=== PATIENT | male | born 1985 | race Caucasian/White ===

== ENCOUNTER 2018-10-01 18:47 | Emergency (ER) | payer OTHER ==
[2018-10-01 19:05] VITALS: BP 127/84; PULSE 73; RESP 18; TEMP 98.4
[2018-10-01] MEDS ORDERED: HYDROcodone/APAP 7.5-325MG 1 EACH TAB PO ONE (19:22)
--- NOTE | 2018-10-01 19:41 | ED ---
Extremity Problem HPI - General Chief complaint: Extremity Problem,Nontraumatic Stated complaint: R Leg Pain, Numbness Time Seen by Provider: 10/01/18 19:02 Source: patient Mode of arrival: EMS Limitations: no limitations - History of Present Illness Initial comments: 33-year-old male patient who recently underwent external fixation of a right ankle injury on 09/25/2018. Patient states that he is out of his pain medication as been having increasing pain to the right leg. Patient states he is also having a numbness tingling sensation in the right lateral thigh that is worsened since yesterday. States his leg is swollen. States his surgeon is concern for blood clot. States he is taking an aspirin daily. Denies any numbness or tingling to the foot. Denies any new injury to the leg. Denies any chest pain, shortness of breath, or palpitations. Denies any history of DVT. Patient denies any recent rash, fever, chills, abdominal pain, nausea, vomiting, diarrhea, constipation, back pain, numbness, tingling, dizziness, weakness, hematuria, dysuria, urinary urgency, urinary frequency, headache, visual changes, or any other complaints. - Related Data Home Medications Medication Instructions Recorded Confirmed Aspirin EC [Ecotrin Low Dose] 81 mg PO DAILY 10/01/18 10/01/18 Docusate [Colace] 100 mg PO DAILY 10/01/18 10/01/18 HYDROcodone/APAP 5-325MG [[place] 1 tab PO Q6HR PRN 10/01/18 10/01/18 5-325] Omeprazole 40 mg PO DAILY 10/01/18 10/01/18 Allergies Allergy/AdvReac Type Severity Reaction Status Date / Time No Known Allergies Allergy Unverified 10/01/18 19:21 Review of Systems ROS Statement: Those systems with pertinent positive or pertinent negative responses have been documented in the HPI. ROS Other: All systems not noted in ROS Statement are negative. Past Medical History Additional Past Medical History / Comment(s): suicide attempts in past History of Any Multi-Drug Resistant Organisms: None Reported Past Surgical History: Orthopedic Surgery Additional Past Surgical History / Comment(s): r ankle surg Past Psychological History: Anxiety, Bipolar, Depression Smoking Status: Current every day smoker Past Alcohol Use History: Abuse, Daily Past Drug Use History: Marijuana General Exam Limitations: no limitations General appearance: alert, in no apparent distress, other (Physical well- developed, well-nourished adult male patient in no acute distress. Vital signs upon presentation are temperature 98.4F, pulse 73, respirations 18, blood pressure 127/84, pulse ox 99% on room air.) Eye exam: Present: normal appearance, PERRL, EOMI. Absent: scleral icterus, conjunctival injection, periorbital swelling ENT exam: Present: normal exam, normal oropharynx, mucous membranes moist Respiratory exam: Present: normal lung sounds bilaterally. Absent: respiratory distress, wheezes, rales, rhonchi, stridor Cardiovascular Exam: Present: regular rate, normal rhythm, normal heart sounds. Absent: systolic murmur, diastolic murmur, rubs, gallop, clicks Extremities exam: Present: full ROM, normal capillary refill, other (Patient has external fixation device to the right lower leg and ankle. Patient insertion sites appear to be intact with no evidence of infection. There is mild swelling of the right leg, nonpitting. Skin is pink, warm, dry. Cap refills less than 3 seconds. Pedal pulses 2+.). Absent: normal inspection, tenderness, pedal edema, joint swelling, calf tenderness Neurological exam: Present: alert, oriented X3, CN II-XII intact Psychiatric exam: Present: normal affect, normal mood Skin exam: Present: warm, dry, intact, normal color. Absent: rash Course Vital Signs 10/01/18 18:58 Temperature 98.4 F Pulse Rate 73 Respiratory 18 Rate Blood Pressure 127/84 O2 Sat by Pulse 99 Oximetry Medical Decision Making - Medical Decision Making 33-year-old male patient presents to the emergency department today for evaluation of pain, swelling, and paresthesia to the right lower extremity. Patient is status post external fixation and repair of right ankle fracture on 09/25/2018. Patient's physicians abdomen to rule out DVT. Ultrasound was obtained and showed no evidence for acute DVT. Patient is neurovascular status was intact. Pulses were strong and intact. This all patient's pain is more related to being out of his narcotic pain medication as he did take more than directed over the last several days. He is instructed to follow-up with his surgeon for further evaluation any further prescription refills. Return parameters were discussed in detail. He verbalizes understanding and agrees with this plan. - Radiology Data Radiology results: report reviewed, image reviewed Venous Doppler duplex of the right lower extremity was obtained. Report was reviewed in its entirety. Impression by Dr. Pérez shows no ultrasound evidence for acute DVT in the right lower extremity. Disposition Clinical Impression: Postoperative pain, Right leg paresthesias Disposition: HOME SELF-CARE Condition: Good Instructions (If sedation given, give patient instructions): Paresthesia (ED), Leg Pain (ED) Additional Instructions: Follow-up with your surgeon for further evaluation and any refills on prescriptions. Return to the emergency department for any new, worsening, or concerning symptoms. Is patient prescribed a controlled substance at d/c from ED?: No Referrals: None,Stated [Primary Care Provider] - 1-2 days Time of Disposition: 20:46
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
== END 2018-10-01 21:10 | disposition home or self-care (01) ==
LOC: EC 18:47
DX: G89.18 Other acute postprocedural pain (principal); M79.604 Pain in right leg; R20.2 Paresthesia of skin; M79.89 Other specified soft tissue disorders; R20.0 Anesthesia of skin; F17.200 Nicotine dependence, unspecified, uncomplicated; Z79.82 Long term (current) use of aspirin; Z79.899 Other long term (current) drug therapy; Z87.81 Personal history of (healed) traumatic fracture; Z96.698 Presence of other orthopedic joint implants
CPT/HCPCS: 99284

== ENCOUNTER 2018-10-06 09:29 | Emergency (ER) | payer OTHER ==
[2018-10-06 09:36] VITALS: RESP 18
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
--- NOTE | 2018-10-06 10:30 | XR ---
EXAMINATION TYPE: XR tibia fibula RT DATE OF EXAM: 10/06/2018 CLINICAL HISTORY: pain TECHNIQUE: AP and lateral images of the right tibia and fibula are obtained. COMPARISON: None. FINDINGS: Comminuted distal tibial fracture. Comminuted ulnar fracture noted as well. Traction device in place. The joint spaces appear within normal limits. Soft tissue edema noted. The graft IMPRESSI ON: Distal tibial and fibular fractures with traction device in place.
[2018-10-06] MEDS ORDERED: MORPHINE SULFATE 4 MG/ML SYRINGE IM STA (10:40)
[2018-10-06] MEDS ORDERED: KETOROLAC 60 MG/2 ML VIAL IM STA (10:44)
[2018-10-06 11:14] VITALS: BP 135/72; PULSE 99; TEMP 98.5
== END 2018-10-06 11:13 | disposition home or self-care (01) ==
LOC: EC 09:29
DX: S82.891A Other fracture of right lower leg, initial encounter for closed fracture (principal); G89.18 Other acute postprocedural pain; F17.200 Nicotine dependence, unspecified, uncomplicated; Z53.8 Procedure and treatment not carried out for other reasons; Z98.890 Other specified postprocedural states; Z79.82 Long term (current) use of aspirin; Z79.899 Other long term (current) drug therapy; W19.XXXA Unspecified fall, initial encounter
CPT/HCPCS: 73590; 99283; 96372; J1885

== ENCOUNTER 2018-10-07 02:00 | Emergency (ER) | payer OTHER ==
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
[2018-10-07] MEDS ORDERED: SODIUM CHLORIDE 0.9% 1,000 ML IV ONE (02:43)
[2018-10-07] MEDS ORDERED: HYDROcodone/APAP 7.5-325MG 1 EACH TAB PO ONE (02:43)
[2018-10-07] MEDS ORDERED: IBUPROFEN 600 MG TAB PO STA (04:36)
[2018-10-07] MEDS: SODIUM CHLORIDE 0.9% 500 ML 500 ML IV SCH ×2 (05:04→07:23)
--- NOTE | 2018-10-07 05:12 | XR ---
EXAM: XR Right Tibia and Fibula, 2 Views CLINICAL HISTORY: ITS.REASON XR Reason: Pain TECHNIQUE: Frontal and lateral views of the right tibia and fibula. COMPARISON: Right tibia fibula radiographs 10/06/2018. FINDINGS: Bones/joints: Comminuted intra-articular distal tibia and fibula fractures are seen status post external fixation of the right lower leg. No significant interval change in alignment of fractures. Soft tissues: Soft tissue swelling of the ankle.. No radiopaque foreign body. IMPRESSION: Comminuted intra-articular distal tibia and fibula fractures are seen status post external fixation of the right lower leg. No new fracture is seen.
[2018-10-07 05:13] LABS: Basophils # (A) 0.1 k/uL (0-0.2); Basophils % (A) 0 %; Eosinophils # (A) 0.3 k/uL (0-0.7); Eosinophils % (A) 2 %; HCT 34.2 % (39.0-53.0); HGB 11.9 gm/dL (13.0-17.5); Lymphocytes # (A) 1.1 k/uL (1.0-4.8); Lymphocytes % (A) 8 %; MCH 31.1 pg (25.0-35.0); MCHC 34.6 g/dL (31.0-37.0); MCV 89.7 fL (80.0-100.0); Mean Platelet Volume 6.3; Monocytes # (A) 0.9 k/uL (0-1.0); Monocytes % (A) 7 %; Neutrophils # (A) 10.8 k/uL (1.3-7.7); Neutrophils % (A) 81 %; Platelet Count 364 k/uL (150-450); RBC 3.82 m/uL (4.30-5.90); RDW 14.6 % (11.5-15.5); WBC 13.3 k/uL (3.8-10.6)
[2018-10-07 05:23] LABS: Partial Thromboplastin Time 22.6 sec (22.0-30.0); Prothrombin Time 10.4 sec (9.0-12.0)
[2018-10-07 05:33] LABS: ALT 33 U/L (21-72); AST 29 U/L (17-59); Albumin 3.4 g/dL (3.5-5.0); Alkaline Phosphatase 77 U/L (38-126); Anion Gap 5 mmol/L; Blood Urea Nitrogen 15 mg/dL (9-20); C Reactive Protein 35.6 mg/L (<10.0); Calcium 8.8 mg/dL (8.4-10.2); Carbon Dioxide 22 mmol/L (22-30); Chloride 109 mmol/L (98-107); Glucose 108 mg/dL (74-99); Sodium 136 mmol/L (137-145); Total Bilirubin 1.1 mg/dL (0.2-1.3); Total Protein 6.2 g/dL (6.3-8.2)
[2018-10-07 06:46] LABS: Appearance,Urine Clear (Clear); Bilirubin,Urine Negative (Negative); Blood,Urine Negative (Negative); Color,Urine Light Yellow; Glucose,Urine (UA) Negative (Negative); Ketones,Urine Negative (Negative); Leukocyte Esterase,Urine Negative (Negative); Nitrite,Urine Negative (Negative); PH, Urine 5.5 (5.0-8.0); Protein,Urine Negative (Negative); Specific Gravity,Urine 1.006 (1.001-1.035); Urobilinogen,Urine <2.0 mg/dL (<2.0)
[2018-10-07 06:51] LABS: Amphetamine Screen,Urine Detected (NotDetected); Cocaine Screen,Urine Not Detected (NotDetected); Opiate Screen,Urine Detected (NotDetected); Phencyclidine Screen,Urine Not Detected (NotDetected); Urn Cannabinoid Scrn Detected (NotDetected)
[2018-10-07 06:52] LABS: Barbiturate Screen,Urine Not Detected (NotDetected); Benzodiazepines Screen,Urine Not Detected (NotDetected); Methadone Screen, Urine Not Detected (NotDetected); Oxycodone Screen, Urine Not Detected (NotDetected); Tricyclic Antidepressant,Urine Not Detected (NotDetected)
--- NOTE | 2018-10-07 07:09 | XR ---
EXAM: XR Chest, 2 Views CLINICAL HISTORY: Cough, sepsis TECHNIQUE: Frontal and lateral views of the chest. COMPARISON: No relevant prior studies available. FINDINGS: Lungs: Subsegmental opacities are noted in the perihilar regions and right lower lobe on the lateral projection but not confirmed in the frontal projection. Pleural space: Unremarkable. No pneumothorax. Heart: Cardiac silhouette is within normal limits. Mediastinum: Mediastinal contours are unremarkable. The trachea is midline. Bones/joints: Unremarkable. IMPRESSION: Subsegmental opacities are noted in the perihilar regions and right lower lobe on the lateral projection but not confirmed in the frontal projection. Primary consideration is transient subsegmental atelectasis. No lobar consolidation identified. No large pleural effusion or pneumothorax.
[2018-10-07] MEDS ORDERED: ceFAZolin 1,000 MG in DEXTROSE/WATER 1 50ML.BAG IVPB STA (07:30)
[2018-10-07] MEDS ORDERED: MORPHINE SULFATE 4 MG/ML SYRINGE IVP STA (07:50)
[2018-10-07 08:41] VITALS: BP 128/80; PULSE 83; RESP 18; TEMP 97.7
== END 2018-10-07 08:55 | disposition home or self-care (01) ==
LOC: EC 02:00
DX: S82.391A Other fracture of lower end of right tibia, initial encounter for closed fracture (principal); S82.831A Other fracture of upper and lower end of right fibula, initial encounter for closed fracture; G89.18 Other acute postprocedural pain; F11.20 Opioid dependence, uncomplicated; R00.0 Tachycardia, unspecified; R06.82 Tachypnea, not elsewhere classified; R50.9 Fever, unspecified; R45.851 Suicidal ideations; F17.200 Nicotine dependence, unspecified, uncomplicated; Z79.82 Long term (current) use of aspirin; Z79.899 Other long term (current) drug therapy; Z59.0 Homelessness; Z91.14 Patient's other noncompliance with medication regimen; X50.9XXA Other and unspecified overexertion or strenuous movements or postures, initial encounter
CPT/HCPCS: 36415; 93005; 80053; 83605; 85025; 85610; 85730; 86140; 81003; 87040; 80306; 87502; 73590; 71046; 99284; 96365; 96375; 96361 ×5; J2270; J0690

== ENCOUNTER 2018-10-09 17:10 | Emergency (ER) | payer OTHER ==
--- NOTE | 2018-10-09 17:51 | ED ---
General Adult HPI - General Chief complaint: Skin/Abscess/Foreign Body Stated complaint: Nursing Home clearance Time Seen by Provider: 10/09/18 17:23 Source: patient, police Mode of arrival: wheelchair Limitations: no limitations - History of Present Illness Initial comments: Dictation was produced using Omaze dictation software. please excuse any grammatical, word or spelling errors. Chief Complaint: 33-year-old male brought in by law enforcement for medical clearance. History of Present Illness: Chin is a 33-year-old male. He is brought in by law enforcement for medical clearance to go to [facility]. Patient was allegedly found on the streets when he was apprehended. He was brought to emergency department for medical clearance. Patient complaining of pain at the expect site. Patient suffered a right lower extremity injury couple weeks ago. Patient had x-ray performed at [facility]. Patient denies any constitutional symptoms. States that he hasn't changes dressing since he was seen at [place] 2 days ago. The ROS documented in this emergency department record has been reviewed and confirmed by me. Those systems with pertinent positive or negative responses have been documented in the HPI. All other systems are other negative and/or noncontributory. PHYSICAL EXAM: General Impression: Alert and oriented x3, not in acute distress HEENT: Normocephalic atraumatic, extra-ocular movements intact, pupils equal and reactive to light bilaterally, mucous membranes moist. Cardiovascular: Heart regular rate and rhythm, S1&S2 audible, no murmurs, rubs or gallops Chest: Lungs clear to auscultation bilaterally, no rhonchi, no wheeze, no rales Abdomen: Bowel sounds present, abdomen soft, non-tender, non-distended, no organomegaly Musculoskeletal: Pulses present and equal in all extremities, mild edema to the surgical lower extremity Motor: Power 5/5 bilaterally, no focal deficits noted Neurological: CN II-XII grossly intact, no focal motor or sensory deficits noted Skin: Pin sites clean dry and intact. There is mild nerve soberness exudate coming from pin sites at the foot. Psych: Normal affect and mood ED course: 33-year-old male presents for medical clearance for transfer to [facility]. Signs upon arrival shows temperature 100.3, respiratory signs within acceptable limits. No clear physical exam findings to suggest infection. Laboratory evaluation is unremarkable. X-rays of the right lower extremity was unremarkable. His point there is no definitive indication for antibiotics given that looks appear well-appearing and does not appear to be infected on physical examination. Patient's dressings were changed. Patient clear for transfer to the custody of law enforcement. - Related Data Home Medications Medication Instructions Recorded Confirmed No Known Home Medications 10/07/18 10/09/18 Allergies Allergy/AdvReac Type Severity Reaction Status Date / Time No Known Allergies Allergy Verified 10/09/18 18:09 Review of Systems ROS Statement: Those systems with pertinent positive or pertinent negative responses have been documented in the HPI. ROS Other: All systems not noted in ROS Statement are negative. Past Medical History Additional Past Medical History / Comment(s): suicide attempts in past History of Any Multi-Drug Resistant Organisms: None Reported Past Surgical History: Orthopedic Surgery Additional Past Surgical History / Comment(s): r ankle surg Past Psychological History: Anxiety, Bipolar, Depression Smoking Status: Current every day smoker Past Alcohol Use History: Abuse, Daily Past Drug Use History: Marijuana General Exam Limitations: no limitations Course Vital Signs 10/09/18 17:14 Temperature 100.3 F H Pulse Rate 98 Respiratory 20 Rate Blood Pressure 147/79 O2 Sat by Pulse 99 Oximetry Medical Decision Making - Lab Data Result diagrams: 10/09/18 18:00 10/09/18 18:00 Lab Results 10/09/18 10/09/18 Range/Units 18:00 18:00 WBC 7.8 (3.8-10.6) k/uL RBC 4.03 L (4.30-5.90) m/uL Hgb 12.4 L (13.0-17.5) gm/dL Hct 36.6 L (39.0-53.0) % MCV 90.7 (80.0-100.0) fL MCH 30.8 (25.0-35.0) pg MCHC 33.9 (31.0-37.0) g/dL RDW 14.4 (11.5-15.5) % Plt Count 425 (150-450) k/uL Neutrophils % 78 % Lymphocytes % 9 % Monocytes % 7 % Eosinophils % 3 % Basophils % 1 % Neutrophils # 6.1 (1.3-7.7) k/uL Lymphocytes # 0.7 L (1.0-4.8) k/uL Monocytes # 0.6 (0-1.0) k/uL Eosinophils # 0.2 (0-0.7) k/uL Basophils # 0.1 (0-0.2) k/uL Sodium 141 (137-145) mmol/L Potassium 4.3 (3.5-5.1) mmol/L Chloride 108 H (98-107) mmol/L Carbon Dioxide 25 (22-30) mmol/L Anion Gap 8 mmol/L BUN 8 L (9-20) mg/dL Creatinine 0.70 (0.66-1.25) mg/dL Est GFR (CKD-EPI)AfAm >90 (>60 ml/min/1.73 sqM) Est GFR (CKD-EPI)NonAf >90 (>60 ml/min/1.73 sqM) Glucose 88 (74-99) mg/dL Calcium 9.0 (8.4-10.2) mg/dL Disposition Clinical Impression: Wellness examination Disposition: OTHER INSTITUTION NOT DEFINED Condition: Good Instructions (If sedation given, give patient instructions): External Fixation Device for an Adult (DC) Is patient prescribed a controlled substance at d/c from ED?: No Referrals: None,Stated [Primary Care Provider] - 1-2 days Time of Disposition: 18:58 - Out of Hospital Transfer - Req. Specs Out of Hospital Transfer - Requested Specifics: Other Non-Acute (custody of law enforcement)
[2018-10-09 18:04] LABS: Basophils # (A) 0.1 k/uL (0-0.2); Basophils % (A) 1 %; Eosinophils # (A) 0.2 k/uL (0-0.7); Eosinophils % (A) 3 %; HCT 36.6 % (39.0-53.0); HGB 12.4 gm/dL (13.0-17.5); Lymphocytes # (A) 0.7 k/uL (1.0-4.8); Lymphocytes % (A) 9 %; MCH 30.8 pg (25.0-35.0); MCHC 33.9 g/dL (31.0-37.0); MCV 90.7 fL (80.0-100.0); Mean Platelet Volume 6.2; Monocytes # (A) 0.6 k/uL (0-1.0); Monocytes % (A) 7 %; Neutrophils # (A) 6.1 k/uL (1.3-7.7); Neutrophils % (A) 78 %; Platelet Count 425 k/uL (150-450); RBC 4.03 m/uL (4.30-5.90); RDW 14.4 % (11.5-15.5); WBC 7.8 k/uL (3.8-10.6)
[2018-10-09 18:12] LABS: Anion Gap 8 mmol/L; Blood Urea Nitrogen 8 mg/dL (9-20); Carbon Dioxide 25 mmol/L (22-30); Chloride 108 mmol/L (98-107); Glucose 88 mg/dL (74-99); Potassium 4.3 mmol/L (3.5-5.1); Sodium 141 mmol/L (137-145)
[2018-10-09] MEDS ORDERED: HYDROcodone/APAP 5-325MG 1 EACH TAB PO STA (18:13)
--- NOTE | 2018-10-09 18:52 | XR ---
PROCEDURE: XR foot complete RT - 3V DATE AND TIME: 10/09/2018 6:27 PM CLINICAL INDICATION: PHH; Pain TECHNIQUE: Crosstable lateral and AP and oblique AP views COMPARISON: 10/07/2018 FINDINGS: External fixator in place. The comminuted tibial plafond intra-articular fracture is noted, as is the calcaneal fracture. There is no midfoot or forefoot fracture or malalignment. IMPRESSION: Stable appearance.
--- NOTE | 2018-10-09 18:54 | XR ---
PROCEDURE: XR tibia fibula RT - 3V DATE AND TIME: 10/09/2018 6:27 PM CLINICAL INDICATION: PHH; Pain, increased pain and redness TECHNIQUE: AP, oblique AP, and lateral views COMPARISON: 10/07/2018 FINDINGS: The comminuted tibial plafond intra-articular fracture is noted, as is the calcaneal fractu re. No other fractures. The soft tissues are unremarkable. IMPRESSION: No definite interval change.
[2018-10-09] MEDS ORDERED: CEPHALEXIN 500 MG CAP PO STA (19:11)
[2018-10-09 19:25] VITALS: BP 132/60; PULSE 102; RESP 18; TEMP 101.9
== END 2018-10-09 19:22 | disposition home or self-care (01) ==
LOC: EC 17:10
DX: Z00.00 Encounter for general adult medical examination without abnormal findings (principal); R50.9 Fever, unspecified; F17.200 Nicotine dependence, unspecified, uncomplicated
CPT/HCPCS: 36415; 80048; 85025; 99283

== ENCOUNTER 2018-11-06 22:50 | Emergency (ER) | payer OTHER ==
[2018-11-06 23:06] VITALS: BP 147/99; PULSE 99; RESP 18; TEMP 98.1
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
== END 2018-11-07 00:08 | disposition home or self-care (01) ==
LOC: EC 22:50
DX: M96.89 Other intraoperative and postprocedural complications and disorders of the musculoskeletal system (principal); F17.200 Nicotine dependence, unspecified, uncomplicated; Z98.890 Other specified postprocedural states
CPT/HCPCS: 99282

== ENCOUNTER 2018-11-11 21:42 | Emergency (ER) | payer OTHER ==
[2018-11-12] MEDS ORDERED: ACETAMINOPHEN TAB 325 MG TAB PO STA (01:27)
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
[2018-11-12 01:50] VITALS: RESP 16
--- NOTE | 2018-11-12 01:57 | XR ---
EXAM: XR Right Foot Complete, 3 or More Views CLINICAL HISTORY: Pain TECHNIQUE: Frontal, lateral and oblique views of the right foot. COMPARISON: 10/07/2018 FINDINGS: Limitations: The examination is limited by external overlying hardware. Bones/joints: An external fixator traverses the calcaneus. A severely comminuted fracture involving the distal tibia and fibula are partially evaluated. No definite acute traumatic injury or interval changes noted involving the tarsal bones, metatarsals and phalanges. Soft tissues: There is soft tissue swelling of the midfoot which is new from previous exam. IMPRESSION: External fixator hardware noted traversing the calcaneus. Comminuted fractures involving the distal tibia and fibula, partially visualized. Soft tissue swelling of the midfoot is new from previous examination. No osseous abnormality or other significant interval change involving the right foot.
--- NOTE | 2018-11-12 02:01 | XR ---
EXAM: XR Right Tibia and Fibula, 2 Views CLINICAL HISTORY: Pain TECHNIQUE: Frontal and lateral views of the right tibia and fibula. COMPARISON: 10/06/2018 FINDINGS: Bones/joints: External hardware is noted traversing the calcaneus. 2 external fixators are noted in the proximal to mid diaphysis of the tibia in an anterior posterior direction. Severely comminuted fracture involving the distal right tibial metaphysis with intra-articular extension is similar to previous examination without significant alteration, accounting for positioning. Comminution involving the posterior ankle joint is noted. There is questionable involvement of the posterior talus. There is comminuted fracture involving the distal fibula. No dislocation. Soft tissues: Soft tissue swelling noted at the ankle, possibly slightly more prominent from previous exam. IMPRESSION: External fixators as noted above. Comminuted fractures involving the distal tibia and fibula with intra-articular extension and potential involvement of the talus are similar to previous exam without significant alteration. Soft tissue swelling at the ankle is questionably slightly increased.
--- NOTE | 2018-11-12 02:07 | XR ---
EXAM: XR Right Ankle Complete, 3 or More Views CLINICAL HISTORY: Pain TECHNIQUE: Frontal, lateral and oblique views of the right ankle. COMPARISON: 11/04/2018 FINDINGS: Bones/joints: External fixators are noted involving the tibia and the calcaneus. Severely comminuted fracture involving the distal tibial metaphysis with intra-articular extension is noted. No significant alteration in alignment is identified. There is comminuted fractures involving the lateral malleolus. There is combination posterior to the talus with questionable defect along the posterior dome of the talus. Soft tissues: Soft tissue swelling at the ankle is slightly increased from previous examination, particularly in the region of the lateral malleolus. IMPRESSION: External fixators remain. Severely comminuted fracture involving the tibia, distal fibula and probably the posterior dome of the talus. Overlying soft tissue swelling at the ankle is slightly prominent from previous examination, particularly laterally.
[2018-11-12 03:15] VITALS: BP 129/80; PULSE 99; TEMP 98.5
[2018-11-12] MEDS ORDERED: ACET/COD 300 MG/30 MG STARTER PACK 6 TAB BTL PO STA (03:16)
== END 2018-11-12 03:20 | disposition home or self-care (01) ==
LOC: EC 21:42
DX: M79.671 Pain in right foot (principal); G89.18 Other acute postprocedural pain; F17.200 Nicotine dependence, unspecified, uncomplicated; Z98.890 Other specified postprocedural states; W17.82XA Fall from (out of) grocery cart, initial encounter; Y92.512 Supermarket, store or market as the place of occurrence of the external cause; Y93.I9 Activity, other involving external motion
CPT/HCPCS: 99284

== ENCOUNTER 2018-11-13 20:27 | Emergency (ER) | payer OTHER ==
[2018-11-13] MEDS ORDERED: CLINDAMYCIN 150 MG CAP PO STA (21:06)
[2018-11-13 21:42] LABS: Basophils # (A) 0.1 k/uL (0-0.2); Basophils % (A) 1 %; Eosinophils # (A) 0.3 k/uL (0-0.7); Eosinophils % (A) 3 %; HCT 39.5 % (39.0-53.0); HGB 12.9 gm/dL (13.0-17.5); Lymphocytes # (A) 3.2 k/uL (1.0-4.8); Lymphocytes % (A) 34 %; MCH 29.9 pg (25.0-35.0); MCHC 32.8 g/dL (31.0-37.0); MCV 91.3 fL (80.0-100.0); Monocytes # (A) 0.5 k/uL (0-1.0); Monocytes % (A) 5 %; Neutrophils # (A) 5.2 k/uL (1.3-7.7); Neutrophils % (A) 55 %; Platelet Count 383 k/uL (150-450); RBC 4.32 m/uL (4.30-5.90); RDW 15.3 % (11.5-15.5); WBC 9.4 k/uL (3.8-10.6)
[2018-11-13 21:50] LABS: ALT 21 U/L (21-72); AST 27 U/L (17-59); Albumin 4.1 g/dL (3.5-5.0); Alkaline Phosphatase 84 U/L (38-126); Anion Gap 13 mmol/L; Blood Urea Nitrogen 12 mg/dL (9-20); Calcium 9.7 mg/dL (8.4-10.2); Carbon Dioxide 24 mmol/L (22-30); Chloride 104 mmol/L (98-107); Glucose 89 mg/dL (74-99); Potassium 4.4 mmol/L (3.5-5.1); Sodium 141 mmol/L (137-145); Total Bilirubin 0.4 mg/dL (0.2-1.3)
[2018-11-13 21:53] LABS: Amphetamine Screen,Urine Not Detected (NotDetected); Barbiturate Screen,Urine Not Detected (NotDetected); Benzodiazepines Screen,Urine Not Detected (NotDetected); Cocaine Screen,Urine Not Detected (NotDetected); Methadone Screen, Urine Not Detected (NotDetected); Opiate Screen,Urine Detected (NotDetected); Oxycodone Screen, Urine Not Detected (NotDetected); Phencyclidine Screen,Urine Not Detected (NotDetected); Tricyclic Antidepressant,Urine Not Detected (NotDetected); Urn Cannabinoid Scrn Detected (NotDetected)
--- NOTE | 2018-11-13 22:34 | XR ---
EXAM: XR Right Ankle Complete, 3 or More Views CLINICAL HISTORY: ITS.REASON XR Reason: Pain TECHNIQUE: Frontal, lateral and oblique views of the right ankle. COMPARISON: Right ankle radiography 11/12/18 and 10/06/18. FINDINGS: See Impression. IMPRESSION: Incompletely imaged severely comminuted fractures of the distal fibula and tibia. External fixator device traverses the calcaneus. Still with a large amount of soft tissue swelling about the ankle.
[2018-11-13] MEDS ORDERED: ACETAMINOPHEN TAB 325 MG TAB PO STA (22:54)
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
[2018-11-14] MEDS ORDERED: HYDROcodone/APAP 5-325MG 1 EACH TAB PO STA (03:18)
[2018-11-14] MEDS ORDERED: IBUPROFEN 800 MG TAB PO PRN (05:57)
[2018-11-14] MEDS ORDERED: IBUPROFEN 800 MG TAB PO STA (05:57)
[2018-11-14] MEDS: CLINDAMYCIN 150 MG CAP PO SCH ×2 (08:48→12:51)
[2018-11-14] MEDS: HYDROcodone/APAP 7.5-325MG 1 EACH TAB PO PRN ×2 (08:51→13:24)
[2018-11-14] MEDS ORDERED: NICOTINE 14MG/24HR PATCH TRANSDERM STA (13:21)
[2018-11-14 13:24] VITALS: RESP 14
[2018-11-14 16:34] VITALS: PULSE 79; TEMP 97.5
[2018-11-14 18:11] VITALS: BP 146/96
== END 2018-11-14 18:28 ==
LOC: EC 20:27
DX: F32.9 Major depressive disorder, single episode, unspecified (principal); R45.851 Suicidal ideations; F17.200 Nicotine dependence, unspecified, uncomplicated
CPT/HCPCS: 36415; 80053; 85025; 80306; 73610; 99285; S4990

== ENCOUNTER 2018-11-25 23:36 | Emergency (ER) | payer OTHER ==
--- NOTE | 2018-11-26 | ED ---
General Adult HPI - General Chief complaint: Recheck/Abnormal Lab/Rx Stated complaint: Infection in foot Time Seen by Provider: 11/25/18 23:38 Source: patient Mode of arrival: ambulatory Limitations: no limitations - History of Present Illness Initial comments: Dictation was produced using [employer] dictation software. please excuse any g rammatical, word or spelling errors. Chief Complaint: 33-year-old male presents via EMS for right foot complaint. History of Present Illness: 33-year-old male who is well-known to emergency department for multiple visitations for the same complaint. She is here today because concerns about his surgical site. Patient has history of right lower extremity injury secondary to traumatic injury. He has X fixed that was placed at [facility]. According to EMS who responded to the call patient was at our local grocery store where he was in an argument with his significant other. Patient became upset and called EMS. He told EMS that he wanted them to take him to his orthopedic surgeon in [facility] to get his ex-fix removed. EMS said no and brought him to the emergency department instead. Patient was allegedly supposed to have his ex-fix removed couple weeks ago however he is does not have transportation to get to his orthopedic surgeon for ex-fix removal. Lung enforcement not about the patient's whereabouts came to evaluate the patient for concerns about several warrants for his arrest. The ROS documented in this emergency department record has been reviewed and confirmed by me. Those systems with pertinent positive or negative responses have been documented in the HPI. All other systems are other negative and/or noncontributory. PHYSICAL EXAM: General Impression: Alert and oriented x3, not in acute distress HEENT: Normocephalic atraumatic, extra-ocular movements intact, pupils equal and reactive to light bilaterally, mucous membranes moist. Cardiovascular: Heart regular rate and rhythm, S1&S2 audible, no murmurs, rubs or gallops Chest: Lungs clear to auscultation bilaterally, no rhonchi, no wheeze, no rales Abdomen: Bowel sounds present, abdomen soft, non-tender, non-distended, no organomegaly Musculoskeletal: Pulses present and equal in all extremities, no peripheral edema Motor: no focal deficits noted Neurological: CN II-XII grossly intact, no focal motor or sensory deficits noted Skin: Intact with no visualized rashes Psych: Normal affect and mood Lower extremity: X fixed in place. Pin sites at the ankle have mild drainage of febrile illness tissue. No significant erythema about the pin sites. ED course: 33-year-old male presents to the emergency department for concerns of his right lower martinez ex-fix pin sites. Patient has had infections to the sites in the past. Patient is well-known to emergency department. Chart review shows that he was here yesterday. Patient is brought in by EMS after he was in an argument with his significant other at the grocery store. In sites appear intact at the moment. There is fibrinous tissue without significant erythema at this time. Vital signs upon arrival are within acceptable limits.X-ray of the ankles were obtained showing no acute changes. Patient given prescription for Keflex. He is told to follow up with orthopedic surgeon. - Related Data Home Medications Medication Instructions Recorded Confirmed Ibuprofen [Motrin] 800 mg PO Q8H PRN 11/13/18 11/13/18 Previous Rx's Medication Instructions Recorded Cephalexin [Keflex] 500 mg PO Q6HR 5 Days #20 cap 11/26/18 Allergies Allergy/AdvReac Type Severity Reaction Status Date / Time No Known Allergies Allergy Verified 11/25/18 23:45 Review of Systems ROS Statement: Those systems with pertinent positive or pertinent negative responses have been documented in the HPI. ROS Other: All systems not noted in ROS Statement are negative. Past Medical History Past Medical History: No Reported History Additional Past Medical History / Comment(s): suicide attempts in past, History of Any Multi-Drug Resistant Organisms: None Reported Past Surgical History: Orthopedic Surgery Additional Past Surgical History / Comment(s): r ankle surg, Past Psychological History: Anxiety, Bipolar, Depression Smoking Status: Current every day smoker Past Alcohol Use History: Abuse, Daily Past Drug Use History: Marijuana General Exam Limitations: no limitations Course Vital Signs 11/25/18 11/26/18 23:42 00:18 Temperature 98.1 F 98.4 F Pulse Rate 96 87 Respiratory 18 17 Rate Blood Pressure 155/91 129/91 O2 Sat by Pulse 98 99 Oximetry Disposition Clinical Impression: Ankle pain Disposition: HOME SELF-CARE Condition: Good Instructions (If sedation given, give patient instructions): External Fixation of an Ankle Fracture (DC) Prescriptions: Cephalexin [Keflex] 500 mg PO Q6HR 5 Days #20 cap Is patient prescribed a controlled substance at d/c from ED?: No Referrals: [facility] [Primary Care Provider] - 1-2 days Time of Disposition: 00:36
[2018-11-26 00:19] VITALS: BP 129/91; PULSE 87; RESP 17; TEMP 98.4
[2018-11-26] MEDS ORDERED: ACETAMINOPHEN TAB 500 MG TAB PO STA (00:25)
--- NOTE | 2018-11-26 00:33 | XR ---
EXAM: XR Right Ankle Complete, 3 or More Views CLINICAL HISTORY: ITS.REASON XR Reason: Pain TECHNIQUE: Frontal, lateral and oblique views of the right ankle. COMPARISON: 11/13/18 FINDINGS/IMPRESSION: No significant interval change. Again demonstrated are fractures of the distal tibia and fibula. Possible fracture of the talus, as well. Alignment unchanged. Persistent soft tissue swelling. External fixation device through calcaneus again noted.
== END 2018-11-26 00:59 | disposition home or self-care (01) ==
LOC: EC 23:36
DX: M25.571 Pain in right ankle and joints of right foot (principal); T81.89XA Other complications of procedures, not elsewhere classified, initial encounter; F17.200 Nicotine dependence, unspecified, uncomplicated; Z98.890 Other specified postprocedural states
CPT/HCPCS: 99283

== ENCOUNTER 2022-02-25 14:59 | Emergency (ER) | payer OTHER ==
[2022-02-25 15:06] VITALS: RESP 18
--- NOTE | 2022-02-25 15:18 | ED ---
General Adult HPI - General Chief complaint: Chest Pain Stated complaint: Chest pain Time Seen by Provider: 02/25/22 15:02 Source: patient, EMS, RN notes reviewed, old records reviewed Mode of arrival: EMS Limitations: no limitations - History of Present Illness Initial comments: 6-year-old male presenting for evaluation of chest tightness which is been present for the past 24 hours. No associated dyspnea. No cough or fever. No prior cardiac history. 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 He's been sober for about 3 weeks. Patient denies abdominal pain. Denies any radiating symptoms. - Related Data Home Medications Medication Instructions Recorded Confirmed Ibuprofen [Motrin] 800 mg PO Q8H PRN 11/13/18 11/13/18 Previous Rx's Medication Instructions Recorded Cephalexin [Keflex] 500 mg PO Q6HR 5 Days #20 cap 11/26/18 Allergies Allergy/AdvReac Type Severity Reaction Status Date / Time No Known Allergies Allergy Verified 02/25/22 15:05 Review of Systems ROS Statement: Those systems with pertinent positive or pertinent negative responses have been documented in the HPI. ROS Other: All systems not noted in ROS Statement are negative. Past Medical History Past Medical History: No Reported History Additional Past Medical History / Comment(s): suicide attempts in past, alcohol withdrawl, History of Any Multi-Drug Resistant Organisms: None Reported Past Surgical History: Orthopedic Surgery Additional Past Surgical History / Comment(s): r ankle surg, Past Psychological History: Anxiety, Bipolar, Depression, Schizoaffective Disorder, Schizophrenia Smoking Status: Current some day smoker Past Alcohol Use History: Abuse, Daily Past Drug Use History: Marijuana General Exam Limitations: no limitations General appearance: alert, in no apparent distress Head exam: Present: atraumatic, normocephalic Eye exam: Present: normal appearance, PERRL ENT exam: Present: normal exam Neck exam: Present: normal inspection. Absent: tenderness, meningismus Respiratory exam: Present: normal lung sounds bilaterally. Absent: respiratory distress, wheezes, rales Cardiovascular Exam: Present: regular rate, normal rhythm GI/Abdominal exam: Present: soft. Absent: distended, tenderness, guarding, rebound Extremities exam: Present: normal inspection, normal capillary refill. Absent: calf tenderness Neurological exam: Present: alert, oriented X3, CN II-XII intact. Absent: motor sensory deficit Psychiatric exam: Present: normal affect, normal mood Skin exam: Present: warm, dry, intact, normal color. Absent: cyanosis, diaphoretic Course Vital Signs 02/25/22 02/25/22 15:00 15:14 Temperature 98.7 F Pulse Rate 89 95 Pulse Rate [ 95 First Mate ] Respiratory 18 18 Rate Blood Pressure 156/82 156/82 O2 Sat by Pulse 98 99 Oximetry EKG Findings - EKG Comments: EKG Findings:: EKG: Sinus rhythm, rate of 89, DC interval 187, QRS duration 96, QTC 407) access, T-wave inversion in leads 3. Medical Decision Making - Medical Decision Making 36-year-old male with chest discomfort, sent from [place]. Symptoms have b een ongoing for the past 24 hours. Patient is well-appearing with stable vitals, no acute distress. His EKG is sinus rhythm without ST segment elevation. Chest x-ray shows normal cardiac silhouette, some bronchial cuffing, no focal pneumonia. Normal CBC, normal white,, negative d-dimer, negative troponin. Patient reassured. - Lab Data Result diagrams: 02/25/22 15:15 02/25/22 15:15 Lab Results 02/25/22 02/25/22 02/25/22 Range/Units 15:15 15:15 15:15 WBC 7.8 (3.8-10.6) k/uL RBC 4.72 (4.30-5.90) m/uL Hgb 14.4 (13.0-17.5) gm/dL Hct 42.9 (39.0-53.0) % MCV 91.0 (80.0-100.0) fL MCH 30.5 (25.0-35.0) pg MCHC 33.5 (31.0-37.0) g/dL RDW 13.3 (11.5-15.5) % Plt Count 310 (150-450) k/uL MPV 8.2 Neutrophils % 67 % Lymphocytes % 21 % Monocytes % 7 % Eosinophils % 2 % Basophils % 3 % Neutrophils # 5.2 (1.3-7.7) k/uL Lymphocytes # 1.6 (1.0-4.8) k/uL Monocytes # 0.5 (0-1.0) k/uL Eosinophils # 0.2 (0-0.7) k/uL Basophils # 0.2 (0-0.2) k/uL PT 9.9 (9.0-12.0) sec INR 0.9 (<1.2) APTT 23.9 (22.0-30.0) sec D-Dimer 0.43 (<0.60) mg/L FEU Sodium 136 L (137-145) mmol/L Potassium 4.0 (3.5-5.1) mmol/L Chloride 104 (98-107) mmol/L Carbon Dioxide 23 (22-30) mmol/L Anion Gap 9 mmol/L BUN 16 (9-20) mg/dL Creatinine 1.05 (0.66-1.25) mg/dL Est GFR (CKD-EPI)AfAm >90 (>60 ml/min/1.73 sqM) Est GFR (CKD-EPI)NonAf >90 (>60 ml/min/1.73 sqM) Glucose 147 H (74-99) mg/dL Calcium 9.0 (8.4-10.2) mg/dL Magnesium 1.8 (1.6-2.3) mg/dL Total Bilirubin 0.2 (0.2-1.3) mg/dL AST 24 (17-59) U/L ALT 15 (4-49) U/L Alkaline Phosphatase 70 (38-126) U/L Troponin I (0.000-0.034) ng/mL Total Protein 6.7 (6.3-8.2) g/dL Albumin 4.0 (3.5-5.0) g/dL 02/25/22 Range/Units 15:15 WBC (3.8-10.6) k/uL RBC (4.30-5.90) m/uL Hgb (13.0-17.5) gm/dL Hct (39.0-53.0) % MCV (80.0-100.0) fL MCH (25.0-35.0) pg MCHC (31.0-37.0) g/dL RDW (11.5-15.5) % Plt Count (150-450) k/uL MPV Neutrophils % % Lymphocytes % % Monocytes % % Eosinophils % % Basophils % % Neutrophils # (1.3-7.7) k/uL Lymphocytes # (1.0-4.8) k/uL Monocytes # (0-1.0) k/uL Eosinophils # (0-0.7) k/uL Basophils # (0-0.2) k/uL PT (9.0-12.0) sec INR (<1.2) APTT (22.0-30.0) sec D-Dimer (<0.60) mg/L FEU Sodium (137-145) mmol/L Potassium (3.5-5.1) mmol/L Chloride (98-107) mmol/L Carbon Dioxide (22-30) mmol/L Anion Gap mmol/L BUN (9-20) mg/dL Creatinine (0.66-1.25) mg/dL Est GFR (CKD-EPI)AfAm (>60 ml/min/1.73 sqM) Est GFR (CKD-EPI)NonAf (>60 ml/min/1.73 sqM) Glucose (74-99) mg/dL Calcium (8.4-10.2) mg/dL Magnesium (1.6-2.3) mg/dL Total Bilirubin (0.2-1.3) mg/dL AST (17-59) U/L ALT (4-49) U/L Alkaline Phosphatase (38-126) U/L Troponin I <0.012 (0.000-0.034) ng/mL Total Protein (6.3-8.2) g/dL Albumin (3.5-5.0) g/dL Disposition Clinical Impression: Chest pain Disposition: HOME SELF-CARE Condition: Good Instructions (If sedation given, give patient instructions): Chest Pain (ED) Additional Instructions: Please return with worsening or changing symptoms. Is patient prescribed a controlled substance at d/c from ED?: No Referrals: None,Stated [Primary Care Provider] - 1-2 days Marlo Rinaldi MD [REFERRING] - 1-2 days Time of Disposition: 16:24
[2022-02-25 15:49] LABS: Basophils # (A) 0.2 k/uL (0-0.2); Basophils % (A) 3 %; Eosinophils # (A) 0.2 k/uL (0-0.7); Eosinophils % (A) 2 %; HCT 42.9 % (39.0-53.0); HGB 14.4 gm/dL (13.0-17.5); Lymphocytes # (A) 1.6 k/uL (1.0-4.8); Lymphocytes % (A) 21 %; MCH 30.5 pg (25.0-35.0); MCHC 33.5 g/dL (31.0-37.0); Mean Platelet Volume 8.2; Monocytes # (A) 0.5 k/uL (0-1.0); Monocytes % (A) 7 %; Neutrophils # (A) 5.2 k/uL (1.3-7.7); Neutrophils % (A) 67 %; Platelet Count 310 k/uL (150-450); RBC 4.72 m/uL (4.30-5.90); RDW 13.3 % (11.5-15.5); WBC 7.8 k/uL (3.8-10.6)
[2022-02-25 16:08] LABS: ALT 15 U/L (4-49); AST 24 U/L (17-59); African American GFR (CKD) >90 (>60 ml/min/1.73 sqM); Alkaline Phosphatase 70 U/L (38-126); Anion Gap 9 mmol/L; Blood Urea Nitrogen 16 mg/dL (9-20); Carbon Dioxide 23 mmol/L (22-30); Chloride 104 mmol/L (98-107); Glucose 147 mg/dL (74-99); Magnesium 1.8 mg/dL (1.6-2.3); Non-African American GFR(CKD) >90 (>60 ml/min/1.73 sqM); Sodium 136 mmol/L (137-145); Total Bilirubin 0.2 mg/dL (0.2-1.3); Total Protein 6.7 g/dL (6.3-8.2)
[2022-02-25 16:12] LABS: INR 0.9 (<1.2); Partial Thromboplastin Time 23.9 sec (22.0-30.0); Prothrombin Time 9.9 sec (9.0-12.0)
--- NOTE | 2022-02-25 16:14 | XR ---
EXAMINATION TYPE: XR chest 2V DATE OF EXAM: 02/25/2022 COMPARISON: 10/07/2018 HISTORY: 36-year-old male with chest pain TECHNIQUE: PA and lateral views FINDINGS: Heart normal size. Aorta and pulmonary vasculature are within normal limits. Focal hazy density at th e lower lungs likely relates to overlying soft tissue when correlating with the lateral view. There a ppears to be some mild peribronchial cuffing. No consolidation or pleural effusion. IMPRESSION: Mild peribronchial cuffing could reflect bronchitis or asthma. Clinically correlate. No focal infiltr ate seen.
[2022-02-25 16:42] VITALS: BP 147/97; PULSE 87; TEMP 97.9
== END 2022-02-25 16:42 | disposition home or self-care (01) ==
LOC: EC 14:59
DX: R07.89 Other chest pain (principal); F17.200 Nicotine dependence, unspecified, uncomplicated
CPT/HCPCS: 36415; 71046; 80053; 83735; 84484; 85025; 85379; 85610; 85730; 99285